=== PATIENT | male | born 1940 | race Caucasian/White ===

== ENCOUNTER 2019-01-16 09:01 | Emergency (ER) | payer OTHER ==
--- OUTSIDE RECORDS SUMMARY | 2019-01-16 09:03 | XMS REPORT ---
:1940 Author Organization e[employer] Care Team Providers Name Role Phone Muller, Na Provider Role Unavailable Allergies No Known Allergies Problems Problem Type Condition Code Onset Dates Condition Status Problem Benign essential HTN I10 Active Problem Coronary artery disease I25.10 Active Problem Hyperlipidemia E78.5 Active Problem Actinic keratosis of left side of L57.0 Active forehead Problem Microscopic hematuria R31.2 Active Problem Coronary artery disease involving I25.10 Active [place] coronary artery of [place] heart without angina pectoris Problem BPH (benign prostatic hyperplasia) N40.0 Active Problem Renal insufficiency N28.9 Active Problem 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
--- OUTSIDE RECORDS SUMMARY | 2019-01-16 09:03 | XMS REPORT ---
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
--- OUTSIDE RECORDS SUMMARY | 2019-01-16 09:04 | XMS REPORT ---
:1940 Author Organization [employer] Care Team Providers Name Role Phone Muller, Na Provider Role Unavailable Allergies, Adverse Reactions, Alerts Substance Reaction Event Type N.K.D.A. Info Not Available Non Drug Allergy Problems Problem Type Condition Code Onset Dates Condition Status Assessment Coronary artery disease involving I25.10 Active [place] coronary artery of [place] heart without angina pectoris Problem Renal insufficiency N28.9 Active Assessment Prostate cancer C61 Active Problem BPH (benign prostatic hyperplasia) N40.0 Active Assessment BPH (benign prostatic hyperplasia) N40.0 Active Problem Anemia D64.9 Active Problem Hyperlipidemia E78.5 Active Problem Benign essential HTN I10 Active Problem Coronary artery disease involving I25.10 Active [place] coronary artery of [place] heart without angina pectoris Problem Actinic keratosis of left side of L57.0 Active forehead Assessment Acquired hypothyroidism E03.9 Active Assessment Iron deficiency anemia, D50.9 Active unspecified iron deficiency anemia type Problem Prostate cancer C61 Active Assessment CKD (chronic kidney disease) stage N18.3 Active 3, GFR 30-59 ml/min Problem Chronic renal disease N18.9 Active Problem Schatzki's ring Q39.4 Active Problem Microscopic hematuria R31.2 Active Problem 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 Problem Iron deficiency anemia, D50.9 Active unspecified iron deficiency anemia type Assessment Hyperlipidemia E78.5 Active Assessment Benign essential HTN I10 Active Problem CKD (chronic kidney disease) stage N18.3 Active 3, GFR 30-59 ml/min Problem Coronary artery disease I25.10 Active Problem Vitamin D deficiency E55.9 Active Problem Acquired hypothyroidism E03.9 Active Medications Medication Code Code Instructions Start End Status Dosage System Date Date Nitrostat [facility] 53508025387 0.4 MG Active one tab Sublingual as SL as needed needed for chest pain and may repeat 1 dose in 2 mins and go to ER Zocor ND 09258511933 80 Active 1 EACH ONCE A DAY ORALLY Ecotrin Maximum ND 52956162913 500 MG Orally Active 1 tablet Strength Once a day Lasix ND 98293089351 40 MG Orally Active 1 tablet Once a day Zocor [facility] 84114089592 80 MG Orally Active 1 tablet Once a day in the evening Carvedilol [facility] 45138646564 6.25 MG Active 1 TAB(S) 2 TIMES A DAY ORALLY Synthroid [facility] 53819101790 50 MCG Active 1 EACH ONCE A DAY MiraLax [facility] 85536964391 - Orally Once a Active 1 packet day mixed with 8 ounces of fluid Zocor [facility] 01857377973 80 MG Active 1 EACH ONCE A DAY ORALLY Coreg [facility] 57656664669 6.25 MG Orally Active not defined Ferralet 90 [facility] [address]-69 Active not defined Levothyroxine [facility] 03522386673 50 MCG Orally Active 1 tablet Sodium Once a day on an empty stomach in the morning Carvedilol [facility] 42480524527 6.25 Active 1 TAB(S) 2 TIMES A DAY ORALLY Results No Known Results Summary Purpose eClinicalWorks Submission
--- OUTSIDE RECORDS SUMMARY | 2019-01-16 09:04 | XMS REPORT ---
[...] Problem Coronary artery disease involving I25.[address] coronary artery of 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 Problem Anemia D64.9 Active Assessment Influenza vaccination administered Z23 Active at current visit Problem CKD (chronic kidney disease) stage N18.3 Active 3, GFR 30-59 ml/min Problem Vitamin D deficiency E55.9 Active Problem Iron deficiency anemia, D50.9 Active unspecified iron deficiency anemia type Problem Schatzki's ring Q39.4 Active Problem Acquired hypothyroidism E03.9 Active Problem Chronic renal disease N18.9 Active Medications Medication Code Code Instructions Start End Status Dosage System Date Date Carvedilol [facility] 38590096684 6.25 Active 1 TAB(S) 2 TIMES A DAY ORALLY Levothyroxine [facility] 96290712276 50 MCG Orally Active 1 tablet Sodium Once a day on an empty stomach in the morning Lasix [facility] 19835435101 40 MG Orally Active 1 tablet Once a day Coreg [facility] 01670718515 6.25 MG Orally Active not defined Synthroid ND 20193833358 50 MCG Active 1 EACH ONCE A DAY Zocor [facility] 91482799282 80 MG Active 1 EACH ONCE A DAY ORALLY Zocor [facility] 91165242355 80 MG Orally Active 1 tablet Once a day in the evening Ecotrin Maximum ND 86520961475 500 MG Orally Active 1 tablet Strength Once a day Zocor [facility] 29242940082 80 Active 1 EACH ONCE A DAY ORALLY MiraLax ND 12245431639 - Orally Once a Active 1 packet day mixed with 8 ounces of fluid Ferralet 90 [facility] [address]-04 Active not defined Nitrostat [facility] 41539390292 0.4 MG Active one tab Sublingual as SL as needed needed for chest pain and may repeat 1 dose in 2 mins and go to ER Carvedilol [facility] 03570637210 6.25 MG Active 1 TAB(S) 2 TIMES A DAY ORALLY Results No Known Results Immunizations Vaccine Administration Date FluAD Aug 21, 2018 Summary Purpose eClinicalWorks Submission
[2019-01-16] MEDS ORDERED: CODEINE 30MG/APAP 300MG TAB ONE (10:28)
--- NOTE | 2019-01-16 10:49 | RAD REPORT ---
EXAM DESCRIPTION: CT - Head Brain Wo Cont - 01/16/2019 10:37 am CLINICAL HISTORY: Headache COMPARISON: 2014 TECHNIQUE: Computed axial tomography of the head was obtained. IV contrast was not requested. All CT scans are performed using dose optimization technique as appropriate and may include automated exposure control or mA/KV adjustment according to patient size. FINDINGS: An intracranial bleed is not seen . The ventricles are normal in caliber. No extra-axial fluid collection is noted. Fluid within the sinuses/ mastoids is not seen. IMPRESSION: No acute intracranial abnormality is seen. If patient's symptoms persist MRI of the bra in would be recommended.
[2019-01-16] MEDS ORDERED: TETRACAINE HCL 0.5% 2ML OPTH ONE (11:37)
--- NOTE | 2019-01-16 11:56 | EDPHYS ---
Physician Documentation [facility] Name: Francisco Schroeder Age: 78 yrs Sex: Male : 1940 Arrival Date: 01/16/2019 Time: 09:02 Bed 20 Private MD: Lizeth Muller ED Physician Shawn Viramontes HPI: 01/16 17:36 This 78 yrs old Male presents to ER via Ambulatory with complaints of Sinus kdr Pain. 17:37 The patient complains of pain to the forehead, right eye and left eye. kdr 17:37 The patient describes the headache as aching, constant, a pressure, unrelenting. Onset: kdr The symptoms/episode began/occurred gradually, 3 week(s) ago, No new changes. Associated signs and symptoms: Pertinent positives: Bilateral eye pain with injection and watering. He had had matting of his eye lashes until the last three days. Severity of symptoms: At its worst the pain was mild, in the emergency department the pain is unchanged. Headache History: Other Feels like his prior sinus TRAORE. The symptoms are alleviated by nothing. the symptoms are aggravated by nothing. The patient has experienced similar episodes in the past, a few times, Sinuses . The patient has not recently seen a physician. Historical: - Allergies: 10:05 No Known Allergies; bp - Home Meds: 10:05 aspirin 81 mg Oral TbEC 1 tab once daily [Active]; simvastatin 80 mg Oral tab 80 mg bp daily [Active]; Coreg 6.25 mg Oral tab 1 tab 2 times per day [Active]; Lasix 40 mg Oral tab 1 tab once daily [Active]; levothyroxine 50 mcg tab 1 tab once daily [Active]; Flomax 0.4 mg Oral cp24 1 cap once daily [Active]; - PMHx: 10:05 High Cholesterol; Hypertension; Myocardial infarction; Hypothyroidism; bp - PSHx: 10:05 CABG; bp - Immunization history:: Adult Immunizations up to date. - Social history:: Smoking status: Patient/guardian denies using tobacco. - Ebola Screening: : Patient negative for fever greater than or equal to 101.5 degrees Fahrenheit, and additional compatible Ebola Virus Disease symptoms Patient denies exposure to infectious person Patient denies travel to an Ebola-affected area in the 21 days before illness onset No symptoms or risks identified at this time. ROS: 17:37 Constitutional: Negative for fever, chills, and weight loss, Neck: Negative for injury, kdr pain, and swelling, Cardiovascular: Negative for chest pain, palpitations, and edema, Respiratory: Negative for shortness of breath, cough, wheezing, and pleuritic chest pain, Abdomen/GI: Negative for abdominal pain, nausea, vomiting, diarrhea, and constipation, Back: Negative for injury and pain. 17:37 Eyes: Positive for discharge, matting, photophobia, redness, tearing, Negative for foreign body sensation, icterus, injury or acute deformity, itching, swelling, vision loss, visual disturbance. Exam: 17:37 Constitutional: This is a well developed, well nourished patient who is awake, alert, kdr and in no acute distress. Head/Face: Normocephalic, atraumatic. ENT: Nares patent. No nasal discharge, no septal abnormalities noted. Tympanic membranes are normal and external auditory canals are clear. Oropharynx with no redness, swelling, or masses, exudates, or evidence of obstruction, uvula midline. Mucous membranes moist. Neck: Trachea midline, no thyromegaly or masses palpated, and no cervical lymphadenopathy. Supple, full range of motion without nuchal rigidity, or vertebral point tenderness. No Meningismus. Chest/axilla: Normal chest wall appearance and motion. Nontender with no deformity. No lesions are appreciated. Cardiovascular: Regular rate and rhythm with a normal S1 and S2. No gallops, murmurs, or rubs. Normal PMI, no JVD. No pulse deficits. Respiratory: Lungs have equal breath sounds bilaterally, clear to auscultation and percussion. No rales, rhonchi or wheezes noted. No increased work of breathing, no retractions or nasal flaring. Abdomen/GI: Soft, non-tender, with normal bowel sounds. No distension or tympany. No guarding or rebound. No evidence of tenderness throughout. 17:37 Eyes: Periorbital structures: appear normal, Pupils: Left irregular, from old injury, right is poorly reactive and 2 mm. Vital Signs: 10:07 BP 154 / 66; Pulse 65; Resp 16; Temp 98.1; Pulse Ox 98% ; Weight 61.23 kg; Height 5 ft. bp 3 in. (160.02 cm); 10:07 Body Mass Index 23.91 (61.23 kg, 160.02 cm) bp MDM: 11:55 Patient medically screened. kdr 17:37 Data reviewed: vital signs, nurses notes, lab test result(s). Counseling: I had a kdr detailed discussion with the patient and/or guardian regarding: the historical points, exam findings, and any diagnostic results supporting the discharge/admit diagnosis, lab results, radiology results, the need for outpatient follow up. Physician consultation: Orlando Valencia MD and will see patient in office, immediately. 01/16 10:16 Order name: CT Head Brain wo Cont; Complete Time: 11:31 kdr Administered Medications: 10:20 Drug: Tylenol #3 (300 mg-30 mg) 1 tablet Route: PO; bp 11:05 Follow up: Response: Pain is decreased bp 11:50 Drug: Tetracaine Drops 0.5 % 1 drops Route: Ophthalmic; Site: right eye; iw Disposition: 01/16/19 11:55 Discharged to Home. Impression: Ocular pain, left eye, Ocular pain, right eye, Headache. - Condition is Stable. - Discharge Instructions: Scleritis and Episcleritis, General Headache Without Cause. - Medication Reconciliation Form, Thank You Letter form. - Follow up: Orlando Valencia MD; When: Upon discharge from the Emergency Department; Reason: If symptoms return, Further diagnostic work-up, Recheck today's complaints, Continuance of care, Re-evaluation by your physician. - Problem is an ongoing problem. - Symptoms have improved. - Notes: Go immediately to Dr. Valencia's office Signatures: Dispatcher [employer] EDPA Shawn Viramontes MD MD kdr Hope Mcclain, LUIS F RN iw Evan Vieyra RN RN bp Corrections: (The following items were deleted from the chart) 12:05 11:55 01/16/2019 11:55 Discharged to Home. Impression: Ocular pain, left eye; Ocular iw pain, right eye; Headache. Condition is Stable. Forms are Medication Reconciliation Form, Thank You Letter, Antibiotic Education, Prescription Opioid Use. Follow up: Orlando Valencia; When: Upon discharge from the Emergency Department; Reason: If symptoms return, Further diagnostic work-up, Recheck today's complaints, Continuance of care, Re-evaluation by your physician. Problem is an ongoing problem. Symptoms have improved. kdr
--- NOTE | 2019-01-16 11:56 | ER ---
Nurse's Notes [facility] Name: Francisco Schroeder Age: 78 yrs Sex: Male : 1940 Arrival Date: 01/16/2019 Time: 09:02 Bed 20 Private MD: Lizeth Muller Diagnosis: Ocular pain, left eye;Ocular pain, right eye;Headache Presentation: 01/16 09:52 Presenting complaint: Patient states: TRAORE AND FRONTAL SINUS PAIN x3 WK. Transition of bp care: patient was not received from another setting of care. Onset of symptoms is unknown. Risk Assessment: Do you want to hurt yourself or someone else? Patient reports no desire to harm self or others. Initial Sepsis Screen: Does the patient meet any 2 criteria? No. Patient's initial sepsis screen is negative. Does the patient have a suspected source of infection? No. Patient's initial sepsis screen is negative. Care prior to arrival: None. 09:52 Method Of Arrival: Ambulatory bp 09:52 Acuity: BRAD 4 bp Triage Assessment: 10:05 Headache History: The patient has had previous headaches and this one is similar to bp previous episodes. General: Appears in no apparent distress. comfortable, Behavior is calm, cooperative, appropriate for age. Pain: Complains of pain in forehead Pain currently is 6 out of 10 on a pain scale. Pain began 3 WEEKS Also complains of photophobia. EENT: No deficits noted. Neuro: Level of Consciousness is awake, alert, obeys commands, Oriented to person, place, time, situation, Appropriate for age. Cardiovascular: No deficits noted. Respiratory: Airway is patent Respiratory effort is even, unlabored, Respiratory pattern is regular, symmetrical. GI: No signs and/or symptoms were reported involving the gastrointestinal system. : No signs and/or symptoms were reported regarding the genitourinary system. Derm: No deficits noted. Musculoskeletal: Circulation, motion, and sensation intact. Range of motion: intact in all extremities. Historical: - Allergies: 10:05 No Known Allergies; bp - Home Meds: 10:05 aspirin 81 mg Oral TbEC 1 tab once daily [Active]; simvastatin 80 mg Oral tab 80 mg bp daily [Active]; Coreg 6.25 mg Oral tab 1 tab 2 times per day [Active]; Lasix 40 mg Oral tab 1 tab once daily [Active]; levothyroxine 50 mcg tab 1 tab once daily [Active]; Flomax 0.4 mg Oral cp24 1 cap once daily [Active]; - PMHx: 10:05 High Cholesterol; Hypertension; Myocardial infarction; Hypothyroidism; bp - PSHx: 10:05 CABG; bp - Immunization history:: Adult Immunizations up to date. - Social history:: Smoking status: Patient/guardian denies using tobacco. - Ebola Screening: : Patient negative for fever greater than or equal to 101.5 degrees Fahrenheit, and additional compatible Ebola Virus Disease symptoms Patient denies exposure to infectious person Patient denies travel to an Ebola-affected area in the 21 days before illness onset No symptoms or risks identified at this time. Screenin:50 Abuse screen: Denies threats or abuse. Denies injuries from another. Nutritional iw screening: No deficits noted. Tuberculosis screening: No symptoms or risk factors identified. Fall Risk None identified. Vital Signs: 10:07 BP 154 / 66; Pulse 65; Resp 16; Temp 98.1; Pulse Ox 98% ; Weight 61.23 kg; Height 5 ft. bp 3 in. (160.02 cm); 10:07 Body Mass Index 23.91 (61.23 kg, 160.02 cm) bp ED Course: 09:02 Patient arrived in ED. rg4 09:03 Lizeth Muller MD is Private Physician. rg4 09:17 Shawn Viramontes MD is Attending Physician. kdr 09:51 Evan Vieyra, LUIS F is Primary Nurse. bp 10:01 Triage completed. bp 10:07 Arm band placed on. bp 10:10 Patient has correct armband on for positive identification. iw 10:36 CT Head Brain wo Cont In Process Unspecified. EDMS 11:50 Assist provider with eye exam of right eye. using tonopen Performed by Shwan Viramontes MD iw Patient tolerated well. 11:50 Patient did not have IV access during this emergency room visit. iw 11:54 Orlando Valencia MD is Referral Physician. kdr Administered Medications: 10:20 Drug: Tylenol #3 (300 mg-30 mg) 1 tablet Route: PO; bp 11:05 Follow up: Response: Pain is decreased bp 11:50 Drug: Tetracaine Drops 0.5 % 1 drops Route: Ophthalmic; Site: right eye; iw Outcome: 11:55 Discharge ordered by . kdr 12:[address] Valencia's office iw 12:02 Condition: good 12:02 Discharge instructions given to patient, family, Instructed on follow up and referral plans. Demonstrated understanding of instructions, follow-up care, pt is to go directly to Dr. Valencia's office, pt and verbalize understanding 12:05 Patient left the ED. Signatures: Dispatcher [employer] EDMS Shawn Viramontes MD MD kdr Hope Mcclain RN RN Sulema Light 4 Evan Vieyra, RN RN bp Corrections: (The following items were deleted from the chart) 12:04 12:04 Assist provider with eye exam of [facility]
[2019-01-16 12:10] VITALS: BP 154/66; TEMP 98.1; O2SAT 98
== END 2019-01-16 12:05 | disposition home or self-care (01) ==
LOC: ER 09:01
DX: H57.13 Ocular pain, bilateral (principal); I10 Essential (primary) hypertension; E03.9 Hypothyroidism, unspecified; E78.00 Pure hypercholesterolemia, unspecified; I25.2 Old myocardial infarction; Z79.82 Long term (current) use of aspirin; Z95.1 Presence of aortocoronary bypass graft
CPT/HCPCS: 70450; 99283

== ENCOUNTER 2019-12-01 07:11 | Day surgery (SDC) | payer OTHER ==
[2019-11-27 17:24] LABS: Absolute Lymphocytes (CBC) 1.3 K/uL (0.7-4.9); Basophils % 0.8 % (0-1.3); Hematocrit 38.7 % (39.6-49.0); Lymphocytes % 25.3 % (15.3-44.8); MPV 7.5 fL (7.6-11.3); RBC Red Blood Cell Count 4.21 M/uL (4.33-5.43)
[2019-11-27 17:36] LABS: Potassium 3.8 mmol/L (3.5-5.1)
--- NOTE | 2019-11-27 17:48 | RAD REPORT ---
EXAM DESCRIPTION: RAD - Chest Pa And Lat (2 Views) - 11/27/2019 4:56 pm CLINICAL HISTORY: preop, pending abdominal surgery COMPARISON: Chest exam February 2014 TECHNIQUE: Frontal and lateral views of the chest were obtained. FINDINGS: The lungs are fibrotic. Diaphragm is flattened. Fibrotic pattern is not substantially diff erent from comparison. No acute failure, infiltrate or mass finding. Sternotomy wires in place. Hea rt size is normal and central vasculature is within normal limits. No pleural effusion or pneumothor ax seen. No acute bony finding noted. No aortic abnormality. 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 No significant change from comparison.
--- OUTSIDE RECORDS SUMMARY | 2019-12-01 07:14 | XMS REPORT ---
:1940 Author Organization [employer] Care Team Providers Name Role Phone Muller, Na Provider Role Unavailable Allergies, Adverse Reactions, Alerts Substance Reaction Event Type N.K.D.A. 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 Problem Microscopic hematuria R31.2 Active Problem Iron deficiency anemia, D50.9 Active unspecified iron deficiency anemia type Problem Actinic keratosis of left side of L57.0 Active forehead Problem Prostate cancer C61 Active Problem Coronary artery disease involving I25.10 Active [place] coronary artery of [place] heart without angina pectoris Problem Cellulitis of left external ear H60.12 Active Problem Hearing loss of left ear due to H61.22 Active cerumen impaction Problem CKD (chronic kidney disease) stage N18.3 Active 3, GFR 30-59 ml/min Problem Acquired hypothyroidism E03.9 Active Problem Cellulitis of face L03.211 Active Problem Vitamin D deficiency E55.9 Active Problem Hospital discharge follow-up Z09 Active Problem Essential hypertension I10 Active Problem Duodenal ulcer K26.9 Active Problem Ulcer of esophagus without K22.10 Active bleeding Assessment Needs flu shot Z23 Active Problem BPH (benign prostatic hyperplasia) N40.0 Active Assessment Ulcer of esophagus without K22.10 Active bleeding Problem Anemia D64.9 Active Problem Coronary artery disease I25.10 Active Assessment Body mass index (BMI) 23.0-23.9, Z68.23 Active adult Problem Renal insufficiency N28.9 Active Problem Schatzki's ring Q39.4 Active Problem Chronic renal disease N18.9 Active Problem Benign essential HTN I10 Active Problem Hyperlipidemia E78.5 Active Medications Medication Code Code Instructions Start End Status Dosage System Date Date Carvedilol [facility] [place] 37576217542 6.25 MG Active 1 TAB(S) 2 TIMES A DAY ORALLY Tamsulosin HCl [facility] [place]] 38230276427 0.4 MG Orally Active 1 capsule Once a day Ferrous Sulfate [facility] [place] 2] 53520673921 325 (65 Fe) MG Active 1 tablet Orally twice a day Levothyroxine [facility] [place] 2] 53054993702 50 MCG Orally Active 1 tablet Sodium Once a day on an empty stomach in the morning Docusate Sodium [facility] [place] 2[place] 95580727310 100 MG Orally February Active 1 capsule Once a day 2018 as needed Simvastatin [facility] [place] 2] 63375497949 80 Active TAKE 1 TABLET BY MOUTH EVERY DAY IN THE EVENING Zocor [facility] [place] 2[facility] 26228425343 80 MG Orally Active 1 tablet Once a day in the evening Simvastatin [facility] [place] 2] 92538970762 80 MG Orally February Active 1 tablet Once a day 2018 in the evening Lasix [facility] [place] 2] 96272935393 40 MG Orally Active 1 tablet Once a day Levothyroxine [facility] [place] 2] 34970767969 50 MCG Orally Active 1 tablet Sodium Once a day on an empty stomach in the morning Lasix [facility] [place] 2] 09173513252 40 Orally Once Active 1 tablet a day Carafate [facility] [place] 2] 45452482825 1 GM Orally 4 Active 1 tablet times a day on an empty stomach before meals and at bedtime Zocor [facility] [place] 37629796284 80 Active 1 EACH ONCE A DAY ORALLY Carvedilol [facility] [place] 2] 63734866471 6.25 Active TAKE 1 TABLET BY MOUTH TWICE DAILY Ferrous Sulfate [facility] [place] 2] 97333151483 325 (65 Fe) MG Active 1 tablet Orally twice a day Pantoprazole [facility] [place] 2] 97032804110 40 MG Orally Active 1 tablet Sodium Once a day Ferralet 90 [facility] [place] 2[place] [address]-04 Active not defined Docusate Sodium [facility] [place] 2] 33806578691 100 Orally Once Active 1 capsule a day as needed Nitrostat [facility] [place] 2] 42007949071 0.4 MG Active one tab Sublingual as SL as needed needed for chest pain and may repeat 1 dose in 2 mins and go to ER Coreg [facility] [place] 2] 27795511380 6.25 MG Orally Active not defined Vitamin D [facility] [place] 2] 23912697214 2000 UNIT Active 1 tablet Orally twice a day Carafate [facility] [place] 2] 78091108229 1 GM Active 1 TABLET ON AN EMPTY STOMACH BEFORE MEALS AND AT BEDTIME 4 TIMES A DAY ORALLY 90 DAYS Results No Known Results Immunizations Vaccine Administration Date FluAD Aug 18, 2019 Summary Purpose eClinicalWorks Submission
--- OUTSIDE RECORDS SUMMARY | 2019-12-01 07:14 | XMS REPORT ---
:1940 [facility] Address [address] [place] [address] Dr. Hill [address] [place] [id number] Care Team Providers Name Role Phone Unavailable Unavailable Unavailable Problems This patient has no known problems. Allergies, Adverse Reactions, Alerts This patient has no known allergies or adverse reactions. Medications This patient has no known medications.
--- OUTSIDE RECORDS SUMMARY | 2019-12-01 07:14 | XMS REPORT ---
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 Problem Microscopic hematuria R31.2 Active Problem Iron deficiency anemia, D50.9 Active unspecified iron deficiency anemia type Problem Actinic keratosis of left side of L57.0 Active forehead Problem Prostate cancer C61 Active Problem Coronary artery disease involving I25.10 Active [place] coronary artery of [place] heart without angina pectoris Problem Cellulitis of [...] of esophagus without K22.10 Active bleeding Problem BPH (benign prostatic hyperplasia) N40.0 Active Problem Anemia D64.9 Active Problem Coronary artery disease I25.10 Active Problem Renal insufficiency N28.9 Active Problem Schatzki's ring Q39.4 Active Problem Chronic renal disease N18.9 Active Problem Benign essential HTN I10 Active Problem Hyperlipidemia E78.5 Active Medications No Known Medications Results No Known Results Summary Purpose eClinicalWorks Submission
[2019-12-01] MEDS ORDERED: Ringers Lactate 1,000 ML IV ONE ×2 (07:36→09:10)
[2019-12-01] MEDS ORDERED: CEFAZOLIN/SWI 1gm 1 GM/10 ML SYR ONE (07:36)
[2019-12-01] MEDS ORDERED: dexAMETHasone 10 MG/ML VIAL ONE (08:05)
[2019-12-01] MEDS ORDERED: FENTANYL CITR 100 MCG/2 ML ONE (08:05)
[2019-12-01] MEDS ORDERED: propofoL 200 MG/20 ML VIAL IV ONE (08:05)
[2019-12-01] MEDS ORDERED: LIDOCAINE 2% MPF 5 ML VIAL ONE (08:06)
[2019-12-01] MEDS ORDERED: MIDAZOLAM HCL 2 MG/2 ML INJ ONE (08:06)
[2019-12-01] MEDS ORDERED: GLYCOPYRROLATE 0.2 MG/ML SYR ONE ×2 (08:44→08:47)
[2019-12-01] MEDS ORDERED: EPHEDRINE SULF 50 MG/ML VIAL ONE (08:49)
[2019-12-01] MEDS ORDERED: ROCURONIUM 50 MG/5 ML VIAL IV ONE (09:16)
[2019-12-01] MEDS ORDERED: KETOROLAC 30 MG/ML INJ ONE (09:25)
--- NOTE | 2019-12-01 10:03 | P.BOP ---
Preoperative diagnosis: incarcerated right inguinal hernia Postoperative diagnosis: same Primary procedure: Laparoscopic repair of incarcerated right inguinal hernia with mesh Fund Accounting Manager: Joel BRAVO) Estimated blood loss: <10cc Findings: incarcerated right inguinal hernia Anesthesia: General Complications: None Transferred to: Recovery Room Condition: Good
[2019-12-01] MEDS ORDERED: CODEINE 30MG/APAP 300MG TAB ONE (10:38)
[2019-12-01 12:19] VITALS: BP 150/67; TEMP 96.4; O2SAT 98
--- NOTE | 2019-12-01 23:53 | DS ---
Date of Discharge: 12/01/2019 Diagnosis: Incarcerated right inguinal hernia. Procedure: Laparoscopic repair of incarcerated right inguinal hernia with mesh. Disposition: Home. Activity: As tolerated. No heavy lifting. Followup: Follow up in my office in 1 week. Call for appointment [phone]. Keep area dry for 48 ho urs, then may shower. Cold compress of the right inguinal area. Medications: See orders. THALIA/MODL Voice ID: [id number] Report ID: [id number]
--- NOTE | 2019-12-01 23:53 | OP ---
Date of Procedure: 12/01/2019 Surgeon: Julio Cesar Sandoval MD Chip Mucker: Joel Hernandez. Preoperative Diagnosis: Incarcerated, tender right inguinal hernia. Postoperative Diagnosis: Incarcerated, tender right inguinal hernia. Procedure: Laparoscopic repair of incarcerated tender right inguinal hernia with mesh. Estimated Blood Loss: Less than 10 mL. Findings: Incarcerated right inguinal hernia. Anesthesia: General plus local. Implant: A 3D mesh, right side, medium. Indications: This is the case of a male, who comes to us with above diagnosis. Fully explained the benefits, alternatives, and risks of laparoscopic possible open repair of right inguinal hernia with mesh with benefits, alternatives, and risks including, but not limited to infection, bleeding, damage to adjacent structures, anesthesia complication, chronic pain, chronic numbness, MD, and even . He also understands this may not relieve symptoms, he might need more than one surgical interventio n. He was explained in the past the option between open laparoscopic even though at the beginning he was inclined more open, he preferred laparoscopic, so we notified the OR about this move. Once agai n, the risks were explained to the patient. He understands that part, he understands if laparoscopic cannot be done, then open will be the next step. He has signed a consent. Description Of Procedure: Patient was brought to the operating room, placed in supine position. Ane sthesia was done without complication. The right inguinal and abdomen were prepped and draped in jong rile fashion. Local anesthesia was applied followed by sharp incisions in the infraumbilical region. Incision was carried down to fascia. The anterior rectus sheath was opened on the right side and t he muscle retracted laterally to expose the posterior rectus sheath. The extraperitoneal space was g ently developed with the help of blunt dissection and the space maker balloon-tipped catheter directe d towards the pubic symphysis. The scope was placed over the area. The balloon was inflated under d irect visualization to create the extraperitoneal space. After that, the balloon was deflated and re moved. A 5 mm trocar was placed just to the area of the pubis symphysis and another one mcfp betw een the first and the second one. The preperitoneal space was developed gently by exposing the infer ior epigastric vessels, keeping them anterior. Reese ligament was dissected laterally to the juncti on with the iliac veins. Dissection continued inferiorly to the iliopubic tract avoiding damage to t he femoral branch of the genitofemoral nerve and the lateral femoral cutaneous nerve. The cord struc tures were carefully skeletonized. We found a direct and indirect sac. Both of them were addressed and were reduced back into the abdominal cavity by gentle traction. The small bowel that was in the area of the hernia seem to be intact, reduced back into the abdominal cavity. At that moment, we int roduced in the area a 3D mesh medium size to cover the direct and indirect spaces. The mesh was secu red in place, lateral and superior to the iliopubic tract and inferior and medial to the Reese ligam ent using SorbaFix fixation device. After ensuring hemostasis, we proceeded to, under direct visuali zation, holding the mesh in place and making sure that the hernia sac is still retract, deflated the area. The anterior rectus sheath was closed using #1 Vicryl. Trocars were previously removed. The patient tolerated the procedure well. Patient was sent to recovery in stable condition. At the end of the case, the testicles were in the scrotum. THALIA/MARTINE Voice ID: [id number] Report ID: [id number]
== END 2019-12-01 13:10 | disposition home or self-care (01) ==
LOC: OR 07:11
PROVIDERS: ATTEND Surgery
PROC: 0YU54JZ Supplement Right Inguinal Region with Synthetic Substitute, Percutaneous Endoscopic Approach (ICD-10-PCS; principal; 2019-12-01 08:30)
DX: K40.30 Unilateral inguinal hernia, with obstruction, without gangrene, not specified as recurrent (principal); I10 Essential (primary) hypertension; E78.5 Hyperlipidemia, unspecified; E07.9 Disorder of thyroid, unspecified; Z72.0 Tobacco use
CPT/HCPCS: 85025; 80048; 36415; 88302; 71046; 49650; J2704; J3010; J1100; J0690; J7120 ×2; 88304; J2250